=== PATIENT | male | born 1995 | race Caucasian/White ===

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

== ENCOUNTER → 2020-05-17 | Outpatient (CLI) | payer OTHER ==
[~2020-05-17] MED LIST: IBUPROFEN600 MG PO
== END ==
LOC: KOH-I 08:38
DX: M54.5 Low back pain (principal); M51.37 Other intervertebral disc degeneration, lumbosacral region; M43.17 Spondylolisthesis, lumbosacral region
CPT/HCPCS: 72100